=== PATIENT | male | born 1960 | race Caucasian/White ===

== ENCOUNTER 2023-08-05 21:28 | Inpatient (IN) ==
[2023-08-05 22:04] LABS: Basophils # (auto) 0.04 K/uL (0.00-0.20); Basophils % (auto) 0.7 %; Eosinophils # (auto) 0.19 K/uL (0.00-0.50); Eosinophils % (auto) 3.2 %; Hematocrit (blood only) 37.3 % (42.0-52.0); Hemoglobin 12.3 g/dl (14.0-18.0); Immature Granulocytes # (auto) 0.01 K/uL (0.01-0.20); Immature Granulocytes % (auto) 0.2 %; Lymphocytes % (auto) 18.8 %; Mean Corpuscular Hemoglobin 26.8 pg (25.0-34.0); Mean Corpuscular Volume 81.3 fL (80.0-100.0); Monocytes # (auto) 0.59 K/uL (0.11-0.59); Monocytes % (auto) 10.1 %; Neutrophils # (auto) 3.92 K/uL (1.40-6.50); Platelet Count 241 K/uL (130-400); RDW Coefficient of Variation 14.2 % (11.5-14.5); RDW Standard Deviation 41.5 fL (36.4-46.3); Red Blood Count 4.59 M/uL (4.70-6.10); White Blood Count 5.85 K/ul (4.8-10.8)
[2023-08-05 22:18] LABS: Alanine Aminotransferase 33 U/L (7-52); Albumin Globulin Ratio 0.9 (0.9-2); Albumin Level 3.6 gm/dl (3.4-5.0); Alkaline Phosphatase 121 U/L (34-104); Anion Gap 6 (3-11); Aspartate Aminotransferase 21 U/L (13-39); BUN Creatinine Ratio 20.5 (10-20); Bilirubin,Total 0.5 mg/dl (0.2-1.0); Blood Urea Nitrogen 23 mg/dl (6-23); Calcium 9.3 mg/dl (8.6-10.3); Carbon Dioxide 28 mmol/L (21-32); Chloride 102 mmol/L (98-107); Est GFR (African American) 81.7 ml/min; Est GFR (Non-African American) 70.5 ml/min; Globulin 4.1 gm/dl (2.5-4.0); Glucose 251 mg/dl (70-99(Fasting)); Potassium 4.5 mmol/L (3.5-5.1); Sodium 136 mmol/L (136-145); Total Protein 7.7 gm/dl (6.0-8.3)
--- NOTE | 2023-08-05 23:38 | Emergency Department Note ---
Impression & Plan Cellulitis of left foot, Diabetic foot ulcer associated with type 2 diabetes mellitus, Homelessness ED Provider Note CHIEF COMPLAINT: Ankle pain HISTORY OF PRESENTING ILLNESS: This 63-year-old male patient presents to the emergency department via ambulance for evaluation of a wound to the left great toe and swelling to the left ankle. He was admitted 1 month ago for the same symptoms. The patient states that he never picked up the medication after discharge last time because he had no way to get to the pharmacy. He is still homeless as they were unable to find housing for the patient after the patient's last admission. The patient has a history of diabetes. He denies any fevers. Has had some mild discharge from the foot diffusely as well as foul odor. Has been having some increased pain over the left foot today and trouble walking. REVIEW OF SYSTEMS: See HPI for pertinent positives and pertinent negatives. ALLERGIES: NKDA MEDICATIONS: See below PAST MEDICAL HISTORY: See below PHYSICAL EXAM: VITALS: Vitals are noted on the nurse's note and reviewed by myself. GENERAL: Non toxic, no acute distress, non-diaphoretic. SKIN: The L>R feet are macerated and erythematous with a combination of ulcerati ve, yeast, fungal, and bacterial changes. Symptoms are worse over the left great toe. No obvious evidence for abscess. The patient's bilateral lower extremities show signs of chronic diabetic skin changes as well as dry and sloughing skin. Capillary refill <2 sec. EYES: PERRLA. EOMI. Conjunctivae without injection, sclerae without icterus. NOSE: Patent without discharge. MOUTH: Mucous membranes moist. Uvula midline. Airway patent. NECK: Supple without nuchal rigidity. HEART: Regular rate and rhythm without murmurs gallops or rubs. LUNGS: Clear to auscultation bilaterally without wheezes, rales or rhonchi. No retractions or accessory muscle use. ABDOMEN: Positive bowel sounds x 4. Normal tympanic percussion. Soft, nontender. No masses or organomegaly. Espinosa sign negative. No guarding or rebound tenderness. No focal RLQ or LLQ tenderness. MUSCULOSKELETAL: The patient has no significant bony tenderness to palpation of the bilateral feet. He has decreased sensation to the bilateral feet due to diabetic neuropathy. Full range of motion of the toes of the bilateral feet as well as the bilateral ankles without evidence for septic arthritis. Dorsalis pedis and posterior tibial pulse 2+.. NEURO: Patient was alert and oriented. DIFFERENTIAL DIAGNOSIS: Differential diagnosis includes cellulitis, abscess, sepsis, bacteremia, yeast infection, fungal infection, ulcerative changes, peripheral artery disease, vascular occlusion, osteomyelitis, septic arthritis, or others. ED COURSE AND MEDICAL DECISION MAKING: MEDICATIONS GIVEN: Zosyn four-point grams IV and vancomycin 1750 mg IV. INTERPRETATION OF LABS: I interpreted the labs with full lab results as below in the lab section of this note. White blood cell count normal at 5.85. Hemoglobin low at 12.3. Platelet count is normal. Glucose 251 and alk phos 121, but CMP otherwise normal. Lactate normal. Blood cultures are still pending. INTERPRETATION OF IMAGING: X-rays of the bilateral feet were interpreted by myself as negative for radiographic evidence of osteomyelitis or acute bony abnormalities. However, there are multiple chronic changes present. Radiology report is still pending. EXTERNAL RECORDS REVIEWED: I reviewed the patient's past admission where he was discharged on 07/24/2023 for similar symptoms. CONSULTATIONS: On-call hospitalist MDM SUMMARY: I examined the patient. An IV lock was placed and labs were drawn. The patient was discharged on 07/24/2023 after IV antibiotics to treat a cellulitis of the feet. However, the patient was unable to strip picker the prescriptions because he was unable to find a ride. The patient is homeless and multiple attempts during last admission failed to find the patient a home or place to stay. Per patient, his feet have gotten worse since discharge. No evidence for abscess, obvious osteomyelitis, or sepsis based on the above work-up. The patient was given Zosyn and vancomycin. I spoke with the on-call hospitalist who agreed to admit the patient for further management. Please refer to their dictation for further details. The patient's care was transferred in stable condition. DIAGNOSIS: Cellulitis of the left foot Diabetic foot ulcer Homelessness Past Med/Surg History Medical History Anemia Depression Diabetes mellitus Diabetic foot ulcer associated with type 2 diabetes mellitus Homelessness Surgical History History of shoulder surgery Social History Smoking Status: Never smoker Hx Alcohol Use: No Hx Substance Use: No Preferred Language: Danish Communication Ability: Effective Production Troubleshooter Required: No Beliefs That Will Affect Care: None Current Living Situation: Homeless Current Living Situation Comment: homeless, sleeping on [address] Feels Safe at Home: Yes Assistive Devices: None Allergies Allergies Allergy/AdvReac Type Severity Reaction Status Date / Time No Known Allergies Allergy Verified 08/05/23 23:55 Home Meds Home Medications Medication Instructions Recorded Confirmed metformin 750 mg tablet,extended 750 mg PO QAM 08/05/23 08/05/23 release 24 hr polyethylene glycol 3350 17 gram 17 g PO DAILY PRN Constipation 08/05/23 08/05/23 oral powder packet (Miralax) sennosides 8.6 mg tablet (Senokot) 17.2 mg PO BID PRN Constipation 08/05/23 08/05/23 Previous Rx's Medication Instructions Recorded blood sugar diagnostic (VionicTouch #100 ea 07/15/23 Verio test strips) blood-glucose meter #1 ea 07/15/23 escitalopram oxalate 10 mg tablet 10 mg PO DAILY #30 tabs 07/15/23 lancets 30 gauge (Vionictouch Delica #100 ea 07/15/23 Safety Lancet) amoxicillin 875 mg-potassium 1 tab PO BIDM #2 tabs 07/24/23 clavulanate 125 mg tablet doxycycline hyclate 100 mg capsule 100 mg PO BID #2 caps 07/24/23 Results & Data (ED) Vital Signs Vital Signs - 24 hr 08/05/23 21:31 08/05/23 23:53 08/06/23 02:41 Temperature 36.9 C Temperature Source Temporal Artery Scan Pulse Rate 95 H Pulse Rate [Finger] 90 88 Respiratory Rate 16 18 16 Respiratory Effort / Characteristics Non-Labored Spontaneous Non-Labored Spontaneous Respiratory Depth Normal Normal Normal Respiratory Pattern Regular Blood Pressure 140/80 Blood Pressure [Left Arm] 128/68 125/74 Blood Pressure Mean 100 Blood Pressure Mean [Left Arm] 88 91 Blood Pressure Position Sitting Pulse Oximetry 97 96 94 Oxygen Delivery Method Room Air Room Air Room Air Sepsis Recent Fever Within 48 Hours No Sepsis New/Unexplained Change in Mental Status N/A Sepsis Action Taken by Nursing No Action Required Laboratory Data 08/05/23 21:40 08/05/23 21:40 Lab Results 08/05/23 08/05/23 08/06/23 Range/Units 21:40 21:40 00:50 WBC 5.85 (4.8-10.8) K/ul RBC 4.59 L (4.70-6.10) M/uL Hgb 12.3 L (14.0-18.0) g/dl Hct 37.3 L (42.0-52.0) % MCV 81.3 (80.0-100.0) fL MCH 26.8 (25.0-34.0) pg MCHC 33.0 (32.0-36.0) g/dL RDW Std Deviation 41.5 (36.4-46.3) fL RDW Coeff of Mejia 14.2 (11.5-14.5) % Plt Count 241 (130-400) K/uL MPV 9.0 L (9.4-12.4) fL Immature Gran % (Auto) 0.2 % Neut % (Auto) 67.0 % Lymph % (Auto) 18.8 % [place] % (Auto) 10.1 % Eos % (Auto) 3.2 % Baso % (Auto) 0.7 % Neut # (Auto) 3.92 (1.40-6.50) K/uL Lymph # (Auto) 1.10 L (1.20-3.40) K/uL [place] # (Auto) 0.59 (0.11-0.59) K/uL Eos # (Auto) 0.19 (0.00-0.50) K/uL Baso # (Auto) 0.04 (0.00-0.20) K/uL Immature Gran # (Auto) 0.01 (0.01-0.20) K/uL Sodium 136 (136-145) mmol/L Potassium 4.5 (3.5-5.1) mmol/L Chloride 102 (98-107) mmol/L Carbon Dioxide 28 (21-32) mmol/L Anion Gap 6 (3-11) BUN 23 (6-23) mg/dl Creatinine 1.12 (0.6-1.4) mg/dl Est Cr Clr Drug Dosing Not Reportable Est GFR ( Amer) 81.7 ml/min Est GFR (Non-Af Amer) 70.5 ml/min BUN/Creatinine Ratio 20.5 H (10-20) Glucose 251 H (70-99(Fasting)) mg/dl Lactate 1.0 (0.4-2.0) mmol/L Calcium 9.3 (8.6-10.3) mg/dl Total Bilirubin 0.5 (0.2-1.0) mg/dl AST 21 (13-39) U/L ALT 33 (7-52) U/L Alkaline Phosphatase 121 H (34-104) U/L Total Protein 7.7 (6.0-8.3) gm/dl Albumin 3.6 (3.4-5.0) gm/dl Globulin 4.1 H (2.5-4.0) gm/dl Albumin/Globulin Ratio 0.9 (0.9-2) Administered Medications Enoxaparin Sodium (Enoxaparin Inj 40 Mg/0.4 Ml Syr) 40 mg SQ Q24H FARIDA Stop: 09/05/23 05:59 Last Admin: 08/06/23 06:07 Dose: 40 mg Documented By: JUNE Discontinued Medications Piperacillin Sod/Tazobactam Sod (Zosyn) 4.5 gm in 100 mls @ 200 mls/hr IV NOW ONE Stop: 08/06/23 01:53 Last Infusion: 08/06/23 02:55 Dose: 0 mls/hr Documented By: Admin: 08/06/23 01:47 Dose: 200 mls/hr Documented By: DEVANTE Vancomycin HCl 1,750 mg/ (Sodium Chloride) 535 mls @ 200 mls/hr IV NOW ONE Stop: 08/06/23 04:09 Last Admin: 08/06/23 02:40 Dose: 200 mls/hr Documented By: KRISTINE Imaging Data Radiologist's Impression: Foot X-Ray 08/06/23 00:06 XR foot LT min 3V routine, XR foot RT min 3V routine CLINICAL HISTORY: eval osteomyelitis TECHNIQUE: 3 views of the bilateral feet were obtained. Comparison: None available at the time of this dictation. FINDINGS: No evidence of bony erosion is seen. Atrophy of the fifth digit of the right foot is noted. Soft tissue swelling is seen about the foot. IMPRESSION: 1. No radiographic evidence of osteomyelitis. If clinical concern remains, MRI is a more sensitive modality. 2. Atrophy of the right fifth digit is noted with termination at a diminutive proximal phalanx, this appears chronic. ACT 112: Negative or not required by law. Electronically signed by: Hector Wills M.D. 08/06/2023 7:33 AM Foot X-Ray 08/06/23 00:06 XR foot LT min 3V routine, XR foot RT min 3V routine CLINICAL HISTORY: eval osteomyelitis TECHNIQUE: 3 views of the bilateral feet were obtained. Comparison: None available at the time of this dictation. FINDINGS: No evidence of bony erosion is seen. Atrophy of the fifth digit of the right foot is noted. Soft tissue swelling is seen about the foot. IMPRESSION: 1. No radiographic evidence of osteomyelitis. If clinical concern remains, MRI is a more sensitive modality. 2. Atrophy of the right fifth digit is noted with termination at a diminutive proximal phalanx, this appears chronic. ACT 112: Negative or not required by law. Electronically signed by: Hector Wills M.D. 08/06/2023 7:33 AM Discharge Plan Visit Data Chief Complaint: Ankle Pain Stated Complaint: ANKLE PAIN ED Provider: Parris Torres ED Midlevel Provider: Julia Spence Discharge Problem: Cellulitis of left foot, Diabetic foot ulcer associated with type 2 diabetes mellitus, Homelessness Patient Disposition: Admitted As Inpatient Condition: Good Discharge Instructions Interventions: ED Discharge Assessment Last Done: 08/06/23 04:43
[2023-08-06] MEDS ORDERED: PIPERACILLIN/TAZOBACTAM 4.5 GM/100 ML BAG IV ONE (01:24)
[2023-08-06] MEDS ORDERED: VANCOMYCIN HCL 1,750 MG in SODIUM CHLORIDE 0.9% 500 ML IV ONE (01:29)
[2023-08-06] MEDS ORDERED: VANCOMYCIN CONSULT ACTIVE PRN (01:29)
--- NOTE | 2023-08-06 03:05 | History & Physical Report ---
Date of Service August 06, 2023 Assessment & Plan (1) Foot pain, left: Plan: 63 yo male with PMHx depression and uncontrolled DM2 presents with foot pain. He is homeless. Has not taken any medications in the past month. #Cellulitis -presented with few days of pain on bottom L big toe, unable to ambulate due to this. Possible cellulitis but without ulceration. Less likely osteomyelitis. No leukocytosis. Vitals wnl, afebrile. Seen here last month for similar complaint. Was discharged on oral abx however patient unable to obtain them due to being homeless. -XR feet: per my read unremarkable without bony erosion -given vancomycin and zosyn in the ED. Will continue these for now, defer to day team. -blood cx pending -wound care consulted -ultimately needs diabetic shoes as he has severe neuropathy of both feet -will need podiatry f/u post-discharge #DM2,uncontrolled -previously on metformin but none for the last month -A1c 10 from last month -started on SSI #Homeless -case management consulted DVT ppx: lovenox FEN/GI: DM2 Code Status: full Dispo: med surg (2) Diabetic foot ulcer associated with type 2 diabetes mellitus: (3) Homelessness: (4) Constipation: History of Present Illness Chief Complaint: foot pain Primary Care Provider: NO PCP 63 yo male with PMHx depression and uncontrolled DM2 presents with foot pain. He is homeless. A few days ago patient started experiencing pain beneath his left big toe as well as medial ankle which has been progressively getting worse to the point where he can no longer ambulate on it. He denies headache, fever, chest pain, shortness of breath, abdominal pain, nausea, vomiting, diarrhea, constipation, fatigue, new extremity weakness/numbness/tingling. He was seen here 1 month ago for similar symptoms and was discharged on antibiotics which she was to pickle pumper at the pharmacy however he states he never did due to inaccessibility and financial reasons. He also states he has not been taking any other medication over the past month due to the same reason. Allergies Allergy/AdvReac Type Severity Reaction Status Date / Time No Known Allergies Allergy Verified 08/05/23 23:55 Home Medications Medication Instructions Recorded Confirmed Type blood sugar diagnostic (OneTouch #100 ea 07/15/23 Rx Verio test strips) blood-glucose meter #1 ea 07/15/23 Rx escitalopram oxalate 10 mg tablet 10 mg PO DAILY #30 tabs 07/15/23 08/05/23 Rx lancets 30 gauge (Onetouch Delica #100 ea 07/15/23 Rx Safety Lancet) amoxicillin 875 mg-potassium 1 tab PO BIDM #2 tabs 07/24/23 08/05/23 Rx clavulanate 125 mg tablet doxycycline hyclate 100 mg capsule 100 mg PO BID #2 caps 07/24/23 08/05/23 Rx metformin 750 mg tablet,extended 750 mg PO QAM 08/05/23 08/05/23 History release 24 hr polyethylene glycol 3350 17 gram 17 g PO DAILY PRN Constipation 08/05/23 08/05/23 History oral powder packet (Miralax) sennosides 8.6 mg tablet (Senokot) 17.2 mg PO BID PRN Constipation 08/05/23 08/05/23 History Past Med/Surg History Medical History Anemia Depression Diabetes mellitus Diabetic foot ulcer associated with type 2 diabetes mellitus Homelessness Surgical History History of shoulder surgery Social History Smoking Status: Never smoker Hx Alcohol Use: No Hx Substance Use: No Preferred Language: [place] Zealander Communication Ability: Effective Orchid Superintendent Required: No Beliefs That Will Affect Care: None Current Living Situation: Homeless Current Living Situation Comment: homeless, sleeping on [address] Feels Safe at Home: Yes Assistive Devices: None Review of Systems Review of Systems: All systems reviewed & are unremarkable except as noted in HPI & below Physical Exam Physical Exam: Constitutional: disheveled appearing, in no acute distress, pleasant and normal affect, intact memory. AOx3. Vitals as above. HEENT: No scleral injection or discharge.Moist mucous membranes. Neck: Supple without lymphadenopathy or thyromegaly. Trachea midline. Lungs: CTAB. No wheezes/rales/rhonchi. Cardiac: RRR.No lower extremity edema. 2+ distal peripheral pulses. Abdomen: Soft, nontender, and nondistended.No guarding. No hepatosplenomegaly. MSK: No cyanosis or clubbing. Extremities motor strength 5/5. Skin: chronic diabetic skin changes bilateral lower extremities. L big toe plantar aspect with sloughed skin which is non erythematous and without ulcerati on. Neurologic: no focal deficits. Little to no sensation of bilateral lower extremities Results & Data Results & Data Vital Signs (Past 12 Hours) Vital Signs Temp Pulse Pulse Resp BP BP Pulse Ox 08/06/23 02:41 88 16 125/74 94 08/05/23 23:53 90 18 128/68 96 08/05/23 21:31 36.9 C 95 H 16 140/80 97 O2 Del Method 08/06/23 02:41 Room Air 08/05/23 23:53 Room Air 08/05/23 21:31 Room Air Laboratory Results Laboratory Results WBC 5.85 K/ul (4.8-10.8) 08/05/23 21:40 RBC 4.59 M/uL (4.70-6.10) L 08/05/23 21:40 Hgb 12.3 g/dl (14.0-18.0) L 08/05/23 21:40 Hct 37.3 % (42.0-52.0) L 08/05/23 21:40 MCV 81.3 fL (80.0-100.0) 08/05/23 21:40 MCH 26.8 pg (25.0-34.0) 08/05/23 21:40 MCHC 33.0 g/dL (32.0-36.0) 08/05/23 21:40 RDW Std Deviation 41.5 fL (36.4-46.3) 08/05/23 21:40 RDW Coeff of Mejia 14.2 % (11.5-14.5) 08/05/23 21:40 Plt Count 241 K/uL (130-400) 08/05/23 21:40 MPV 9.0 fL (9.4-12.4) L 08/05/23 21:40 Immature Gran % (Auto) 0.2 % 08/05/23 21:40 Neut % (Auto) 67.0 % 08/05/23 21:40 Lymph % (Auto) 18.8 % 08/05/23 21:40 [place] % (Auto) 10.1 % 08/05/23 21:40 Eos % (Auto) 3.2 % 08/05/23 21:40 Baso % (Auto) 0.7 % 08/05/23 21:40 Neut # (Auto) 3.92 K/uL (1.40-6.50) 08/05/23 21:40 Lymph # (Auto) 1.10 K/uL (1.20-3.40) L 08/05/23 21:40 [place] # (Auto) 0.59 K/uL (0.11-0.59) 08/05/23 21:40 Eos # (Auto) 0.19 K/uL (0.00-0.50) 08/05/23 21:40 Baso # (Auto) 0.04 K/uL (0.00-0.20) 08/05/23 21:40 Immature Gran # (Auto) 0.01 K/uL (0.01-0.20) 08/05/23 21:40 Sodium 136 mmol/L (136-145) 08/05/23 21:40 Potassium 4.5 mmol/L (3.5-5.1) 08/05/23 21:40 Chloride 102 mmol/L (98-107) 08/05/23 21:40 Carbon Dioxide 28 mmol/L (21-32) 08/05/23 21:40 Anion Gap 6 (3-11) 08/05/23 21:40 BUN 23 mg/dl (6-23) 08/05/23 21:40 Creatinine 1.12 mg/dl (0.6-1.4) 08/05/23 21:40 Est Cr Clr Drug Dosing Not Reportable 08/05/23 21:40 Est GFR ( Amer) 81.7 ml/min 08/05/23 21:40 Est GFR (Non-Af Amer) 70.5 ml/min 08/05/23 21:40 BUN/Creatinine Ratio 20.5 (10-20) H 08/05/23 21:40 Glucose 251 mg/dl (70-99(Fasting)) H 08/05/23 21:40 Lactate 1.0 mmol/L (0.4-2.0) 08/06/23 00:50 Calcium 9.3 mg/dl (8.6-10.3) 08/05/23 21:40 Total Bilirubin 0.5 mg/dl (0.2-1.0) 08/05/23 21:40 AST 21 U/L (13-39) 08/05/23 21:40 ALT 33 U/L (7-52) 08/05/23 21:40 Alkaline Phosphatase 121 U/L (34-104) H 08/05/23 21:40 Total Protein 7.7 gm/dl (6.0-8.3) 08/05/23 21:40 Albumin 3.6 gm/dl (3.4-5.0) 08/05/23 21:40 Globulin 4.1 gm/dl (2.5-4.0) H 08/05/23 21:40 Albumin/Globulin Ratio 0.9 (0.9-2) 08/05/23 21:40 Supervising Physician Co-Signing Physician Notes Attending addendum: I have physically seen this patient, have supervised the medical residents activities, and agree with the H&P unless as otherwise noted. Assessment and Plan: Cellulitis left foot/great toe- Patient was unable to take oral antibiotics that were prescribed on discharge, due to being homeless and heparin Pharmacy plan Continue vancomycin IV and Zosyn IV begun in ED Follow blood cultures Consult wound care Diabetic shoes would help prevent injury associated with severe neuropathy of his feet Diabetes mellitus, Uncontrolled- Hold on metformin Placed on Accu-Cheks with NovoLog SSI Homeless situation- Consult case management Resident Activity Tracking Resident Involvement: Resident Care Provided Care Provided: Adult Hospital Medicine
[2023-08-06] MEDS ORDERED: GLUCOSE 10 TAB/TUBE PO PRN (04:41)
[2023-08-06] MEDS ORDERED: GLUCOSE 40% GEL 15 GM TUBE PO PRN (04:41)
[2023-08-06] MEDS ORDERED: POLYETHYLENE (MIRALAX) 17 GM PACK PO PRN ×2 (04:41→19:06)
[2023-08-06] MEDS ORDERED: CARBOHYDRATES FOR HYPOGLYCEMIA PO PRN (04:41)
[2023-08-06] MEDS ORDERED: DEXTROSE 50% 50 ML SYRINGE IV PRN (04:41)
[2023-08-06] MEDS ORDERED: ACETAMINOPHEN 325 MG TAB PO PRN (04:41)
[2023-08-06] MEDS ORDERED: GLUCAGON FOR INJ 1 MG VIAL SQ PRN (04:41)
[2023-08-06] MEDS ORDERED: PIPERACILLIN/TAZOBACTAM 4.5 GM/100 ML BAG IV STA (04:49)
[2023-08-06] MEDS: ENOXAPARIN INJ 40 MG/0.4 ML SYR SQ SCH (06:07)
--- NOTE | 2023-08-06 06:23 | Billing Data ---
Date of Service August 06, 2023 Coding Level of Care Code 80289 INT INP/OBS CARE
--- NOTE | 2023-08-06 07:34 | XRay Report ---
XR foot LT min 3V routine, XR foot RT min 3V routine CLINICAL HISTORY: eval osteomyelitis TECHNIQUE: 3 views of the bilateral feet were obtained. Comparison: None available at the time of this dictation. FINDINGS: No evidence of bony erosion is seen. Atrophy of the fifth digit of the right foot is noted. Soft tiss ue swelling is seen about the foot. IMPRESSION: 1. No radiographic evidence of osteomyelitis. If clinical concern remains, MRI is a more sensitive m odality. 2. Atrophy of the right fifth digit is noted with termination at a diminutive proximal phalanx, this appears chronic. ACT 112: Negative or not required by law. Electronically signed by: Hector Wills M.D. 08/06/2023 7:33 AM
[2023-08-06] MEDS ORDERED: PIPERACILLIN/TAZOBACTAM 4.5 GM/100ML D5W IV ONE (08:44)
[2023-08-06] MEDS: PIPERACILLIN/TAZOBACTAM 4.5 GM in DEXTROSE 5% MINI-B 100 ML IV SCH ×2 (08:52→15:53)
[2023-08-06] MEDS: INSULIN ASPART PER UNIT CHARGE SC SCH ×4 (08:59→20:58)
[2023-08-06] MEDS ORDERED: VANCOMYCIN HCL 1,000 MG in SODIUM CHLORIDE 0.9% 250 ML IV SCH (10:00)
--- NOTE | 2023-08-06 11:14 | Pharmacy Report ---
Pharmacy PK ABX Note - Date of Service August 06, 2023 - Assessment and Plan Assessment 63 year old M receiving Vancomycin and Zosyn for treatment of diabetic foot infection. * Day #1 of antimicrobial therapy. * PMHx significant for T2DM that is uncontrolled per most recent A1c and homelessness with medication non-compliance. * Per H&P: "presented with few days of pain on bottom L big toe, unable to ambulate due to this. Possible cellulitis but without ulceration. Less likely osteomyelitis." XR did not show bony erosion per radiology read. * Afebrile and without leukocytosis. SCr 1.12 mg/dL, baseline unknown. * Blood cultures pending. Plan Vancomycin * Loading dose: 1750 mg IV x 1 * Maintenance dose: 1000 mg IV every 12 hours * Regimen is predicted to achieve target AUC/THIERNO of 400-600 mg/L.hr * Random level ordered for: 08/08/23 Zosyn * 4.5 g IV every 8 hours Pharmacy will continue to follow and will adjust dose/frequency as necessary. Thank you. Pharmacy has transitioned to AUC monitoring for vancomycin. AUC/THIERNO is the preferred PK/PD target and is associated with decreased risk of nephrotoxicity compared to traditional trough targets.
--- NOTE | 2023-08-06 19:16 | Communication Note ---
Date of Service: August 06, 2023 63 yo male with PMHx depression and uncontrolled DM2 presents with foot pain. He is homeless.Has not taken any medications in the past month. I saw him after brought from ED this afternoon, examined his feet. L great toe with warty texture, maceration and erythema without sasha ulceration or wound. Bilateral L>R ankle erythema and induration. Ransom wrinkly edema and severe venous stasis dermatitis bilaterally. #Cellulitis of L toe/forefoot and possibly L ankle (increased erythema and tenderness compared to right) #Diabetic neuropathy #Severe venous stasis disease bilaterally #Verruca planataris - time study engineer Dr. Marie consulted last admission and debrided both feet -presented with few days of pain on bottom L big toe, unable to ambulate due to this. Possible cellulitis but without ulceration. Less likely osteomyelitis. No leukocytosis. Vitals wnl, afebrile. Seen here last month for similar complaint. Was discharged on oral abx however patient unable to obtain them due to being homeless. -XR feet: per my read unremarkable without bony erosion -given vancomycin and zosyn in the ED. Stop vancomycin -blood cx pending -elevate -wound care consulted -ultimately needs diabetic shoes as he has severe neuropathy of both feet -will need podiatry f/u post-discharge #DM2,uncontrolled -previously on metformin but none for the last month. Likely resume tomorrow -A1c 10 from last month -started on SSI #Severe chronic constipation - resumed bowel regimen #Iron deficiency - EGD fairly unremarkable last admission 07/22 mild gastritis a nd small hiatal hernia. Colonoscopy attempted but too much stool to visualize, repeat cancelled by GI and planned to do as outpatient -given venofer x 2 doses last admission #Depression - resumed escitalopram #Homeless -case management consulted Last discharge summary 07/24/23: "social work has investigated about 10 + options for housing post-d/c none of these have worked out we contacted his sister who lives in [place] -- she is unwilling to take him in"
[2023-08-07] MEDS: PIPERACILLIN/TAZOBACTAM 4.5 GM in DEXTROSE 5% MINI-B 100 ML IV SCH ×2 (00:35→09:00)
[2023-08-07] MEDS: ENOXAPARIN INJ 40 MG/0.4 ML SYR SQ SCH (05:05)
[2023-08-07] MEDS: MULTIVITAMIN TAB PO SCH (08:12)
[2023-08-07] MEDS: ESCITALOPRAM OXALATE 10 MG TAB PO SCH (08:12)
[2023-08-07] MEDS: INSULIN ASPART PER UNIT CHARGE SC SCH ×4 (08:15→22:12)
[2023-08-07] MEDS: AMOXICILLIN/CLAVULANATE 875 MG TAB PO SCH (17:16)
--- NOTE | 2023-08-07 18:21 | Hospitalist Progress Note ---
Date of Service August 07, 2023 Assessment & Plan (1) Cellulitis of left foot: Plan: 63 yo male with PMHx depression and uncontrolled DM2 presents with foot pain. He is homeless.Has not taken any medications in the past month. L great toe with warty texture, maceration and erythema without sasha ulceration or wound. Bilateral L>R ankle erythema and induration. [place] wrinkly edema and severe venous stasis dermatitis bilaterally. 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 Possible cellulitis but without ulceration. unlikely osteomyelitis. no deep wound is present and x-rays were negative. No leukocytosis. Vitals wnl, afebrile. Seen here last month for similar complaint. Was discharged on oral abx however patient unable to obtain them due to being homeless. -given vancomycin and zosyn in the ED. Improved as of 08/07 change antibiotics to oral Augmentin -blood cx pending - ngtd -elevate -wound care consulted -ultimately needs diabetic shoes as he has severe neuropathy of both feet -will need podiatry f/u post-discharge (2) Plantar verrucous carcinoma of left foot: Plan: podiatry follow up (3) Homelessness: Plan: significant barrier to medical care and follow-up now has been enrolled in insurance discussed with case management Last discharge summary 07/24/23: "social work has investigated about 10 + options for housing post-d/c none of these have worked out we contacted his sister who lives in [place] -- she is unwilling to take him in" (4) Diabetes mellitus: Plan: uncontrolled, A1c 10 last month, BG above goal 08/07 -resume po metformin, continue PRN short acting insulin Plan #Severe chronic constipation - resumed bowel regimen #Iron deficiency - EGD fairly unremarkable last admission 07/22 mild gastritis and small hiatal hernia. Colonoscopy attempted but too much stool to visualize, repeat cancelled by GI and planned to do as outpatient -given venofer x 2 doses last admission #Depression - resumed escitalopram DVT ppx - enoxaparin Admission and Anticipated Discharge Date Admission Date: August 06, 2023 Subjective both legs redness and swelling improved, hasn't seen his toe was still dressed. has numbness and tingling of feet but no pain r/t neuropathy Physical Exam Physical Exam: PHYSICAL EXAMINATION Last 24h vital signs reviewed, see documentation in flowsheet General: comfortable appearing, no distress HEENT: Normocephalic, atraumatic, pupils round and equal, sclerae anicteric, no conjunctival injection, moist mucus membranes Lungs: Normal respiratory effort. Heart: deferred Abdomen: Soft, nondistended. Extremities: lower extremities notable for woody edema up to proximal dumont. Severe stasis dermatitis and hyperkeratosis bilateral feet and shins. Bilateral erythema of mid shins is improved, the left is worse than the right. Left first toe erythema improved. Warty appearance persists. there is some superficial maceration but no deep wounds are present Neuro: Alert and oriented x 4, face symmetric, moves 4 extremities well Psych: Normal affect and behavior Results & Data Results & Data Vital Signs (Past 12 Hours) Vital Signs Temp Pulse Resp BP Pulse Ox O2 Del Method 08/07/23 15:14 36.5 C 69 20 128/74 95 Room Air 08/07/23 07:58 Room Air 08/07/23 07:07 37.2 C 76 16 133/81 96 Room Air PG Care Time/CCT Total # of Minutes Spent Total Time Spent with Patient: Total time spent is greater than 50% in coordination of care (as documented) at patient's floor/unit and/or counseling patient: Coding Level of Care Code 36906 SUB INP/OBS CARE MIN Diagnoses Cellulitis of left foot L03.116 Plantar verrucous carcinoma of left foot C76.52 Homelessness Z59.00 Diabetes mellitus E11.621; L97.509 Diabetes mellitus complication detail: with foot ulcer Diabetes mellitus complication status: with skin complications Diabetes mellitus half-way insulin use: unspecified long goods drier insulin use status Diabetes mellitus type: type 2 (4) Diabetes mellitus Diabetes mellitus complication detail: with foot ulcer Diabetes mellitus complication status: with skin complications Diabetes mellitus long goods drier insulin use: unspecified half-way insulin use status Diabetes mellitus type: type 2 Qualified Code(s): E11.621 - Type 2 diabetes mellitus with foot ulcer; L97.509 - Non-pressure chronic ulcer of other part of unspecified foot with unspecified severity
[2023-08-08] MEDS: ENOXAPARIN INJ 40 MG/0.4 ML SYR SQ SCH (05:19)
[2023-08-08] MEDS: AMOXICILLIN/CLAVULANATE 875 MG TAB PO SCH ×2 (07:40→17:37)
[2023-08-08] MEDS: INSULIN ASPART PER UNIT CHARGE SC SCH ×4 (08:49→20:30)
[2023-08-08] MEDS: ESCITALOPRAM OXALATE 10 MG TAB PO SCH (08:50)
[2023-08-08] MEDS: metFORMIN HCL 500 MG TAB PO SCH (08:50)
[2023-08-08] MEDS: MULTIVITAMIN TAB PO SCH (08:50)
--- NOTE | 2023-08-08 18:46 | Hospitalist Progress Note ---
Date of Service August 08, 2023 Assessment & Plan (1) Cellulitis of left foot: Plan: 63 yo male with PMHx depression and uncontrolled DM2 presents with foot pain. He is homeless.Has not taken any medications in the past month. L great toe with warty texture, maceration and erythema without sasha ulceration or wound. Bilateral L>R ankle erythema and induration. [place] wrinkly edema and severe venous stasis dermatitis bilaterally. 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 Possible cellulitis but without ulceration. unlikely osteomyelitis. no deep wound is present and x-rays were negative. No leukocytosis. Vitals wnl, afebrile. Seen here last month for similar complaint. Was discharged on oral abx however patient unable to obtain them due to being homeless. -given vancomycin and zosyn in the ED. Improved as of 08/07 changed antibiotics to oral Augmentin - complete 7d course -blood cx pending - ngtd -elevate -wound care consulted - rec'd lachydrin -ultimately needs diabetic shoes as he has severe neuropathy of both feet -will need podiatry f/u post-discharge (2) Plantar verrucous carcinoma of left foot: Plan: podiatry follow up (3) Homelessness: Plan: significant barrier to medical care and follow-up now has been enrolled in insurance discussed with case management possibly can move in with friend in [place] Last discharge summary 07/24/23: "social work has investigated about 10 + options for housing post-d/c none of these have worked out we contacted his sister who lives in [place] -- she is unwilling to take him in" (4) Diabetes mellitus: Plan: uncontrolled, A1c 10 last month, BG at goal 08/08 -resumed po metformin, continue PRN short acting insulin Plan #Severe chronic constipation - resumed bowel regimen #Iron deficiency - EGD fairly unremarkable last admission 07/22 mild gastritis and small hiatal hernia. Colonoscopy attempted but too much stool to visualize, repeat cancelled by GI and planned to do as outpatient -given venofer x 2 doses last admission #Depression - resumed escitalopram DVT ppx - enoxaparin Admission and Anticipated Discharge Date Admission Date: August 07, 2023 Subjective foot numbness continues and some mild drainage from L 1st toe. Wound nurse evaluated. States he may be able to move in with a friend in [place] Physical Exam Physical Exam: PHYSICAL EXAMINATION Last 24h vital signs reviewed, see documentation in flowsheet Exam unchanged 08/08 - LE shins erythema and induration improved otherwise same General: comfortable appearing, no distress HEENT: Normocephalic, atraumatic, pupils round and equal, sclerae anicteric, no conjunctival injection, moist mucus membranes Lungs: Normal respiratory effort. Heart: deferred Abdomen: Soft, nondistended. Extremities: lower extremities notable for woody edema up to proximal dum[place]. Severe stasis dermatitis and hyperkeratosis bilateral feet and shins. Bilateral erythema of mid shins is improved, the left is worse than the right. Left first toe erythema improved. Warty appearance persists. there is some superficial maceration but no deep wounds are present Neuro: Alert and oriented x 4, face symmetric, moves 4 extremities well Psych: Normal affect and behavior Results & Data Results & Data Vital Signs (Past 12 Hours) Vital Signs Temp Pulse Resp BP BP Pulse Ox O2 Del Method 08/08/23 14:32 36.9 C 73 18 123/70 95 Room Air 08/08/23 10:40 36.4 C L 74 20 116/68 92 Room Air 08/08/23 07:27 36.4 C L 72 16 124/69 93 Room Air PG Care Time/CCT Total # of Minutes Spent Total Time Spent with Patient: Total time spent is greater than 50% in coordination of care (as documented) at patient's floor/unit and/or counseling patient: Coding Level of Care Code 31023 SUB INP/OBS CARE 10/31MIN Diagnoses Cellulitis of left foot L03.116 Plantar verrucous carcinoma of left foot C76.52 Homelessness Z59.00 Diabetes mellitus E11.621; L97.509 Diabetes mellitus complication detail: with foot ulcer Diabetes mellitus complication status: with skin complications Diabetes mellitus terminal operations supervisor insulin use: unspecified long-term insulin use status Diabetes mellitus type: type 2 (4) Diabetes mellitus Diabetes mellitus complication detail: with foot ulcer Diabetes mellitus complication status: with skin complications Diabetes mellitus terminal operations supervisor insulin use: unspecified terminal operations supervisor insulin use status Diabetes mellitus type: type 2 Qualified Code(s): E11.621 - Type 2 diabetes mellitus with foot ulcer; L97.509 - Non-pressure chronic ulcer of other part of unspecified foot with unspecified severity
[2023-08-09] MEDS: ENOXAPARIN INJ 40 MG/0.4 ML SYR SQ SCH (05:55)
[2023-08-09] MEDS: ESCITALOPRAM OXALATE 10 MG TAB PO SCH (08:28)
[2023-08-09] MEDS: SENNA 8.6 MG TAB PO PRN (08:28)
[2023-08-09] MEDS: AMOXICILLIN/CLAVULANATE 875 MG TAB PO SCH ×2 (08:28→17:26)
[2023-08-09] MEDS: metFORMIN HCL 500 MG TAB PO SCH (08:28)
[2023-08-09] MEDS: AMMONIUM LACTATE 12% LOTION 225 GM BTL EXT SCH (08:29)
[2023-08-09] MEDS: MULTIVITAMIN TAB PO SCH (08:29)
[2023-08-09] MEDS: INSULIN ASPART PER UNIT CHARGE SC SCH ×4 (08:34→21:21)
--- NOTE | 2023-08-09 18:03 | Hospitalist Progress Note ---
Date of Service August 09, 2023 Assessment & Plan (1) Cellulitis of left foot: Plan: 63 yo male with PMHx depression and uncontrolled DM2 presents with foot pain. He is homeless.Has not taken any medications in the past month. L great toe with warty texture, maceration and erythema without sasha ulceration or wound. Bilateral L>R ankle erythema and induration. [place] wrinkly edema and severe venous stasis dermatitis bilaterally. 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 Possible cellulitis but without ulceration. unlikely osteomyelitis. no deep wound is present and x-rays were negative. No leukocytosis. Vitals wnl, afebrile. Seen here last month for similar complaint. Was discharged on oral abx however patient unable to obtain them due to being homeless. -given vancomycin and zosyn in the ED. Improved as of 08/07 changed antibiotics to oral Augmentin - complete 7d course -blood cx pending - ngtd -elevate -wound care consulted - rec'd lachydrin -ultimately needs diabetic shoes as he has severe neuropathy of both feet -will need podiatry f/u post-discharge (2) Plantar verrucous carcinoma of left foot: Plan: podiatry follow up (3) Homelessness: Plan: significant barrier to medical care and follow-up now has been enrolled in insurance discussed with case management 08/09 possibly can move in with friend in [place] Last discharge summary 07/24/23: "social work has investigated about 10 + options for housing post-d/c none of these have worked out we contacted his sister who lives in [place] -- she is unwilling to take him in" (4) Diabetes mellitus: Plan: uncontrolled, A1c 10 last month, BG at goal 08/08 -resumed po metformin, continue PRN short acting insulin Plan #Severe chronic constipation - resumed bowel regimen #Iron deficiency - EGD fairly unremarkable last admission 07/22 mild gastritis and small hiatal hernia. Colonoscopy attempted but too much stool to visualize, repeat cancelled by GI and planned to do as outpatient -given venofer x 2 doses last admission #Depression - resumed escitalopram DVT ppx - enoxaparin Admission and Anticipated Discharge Date Admission Date: August 07, 2023 Subjective redness of ankles improving, swelling resolved, working on staying with friend Physical Exam Physical Exam: PHYSICAL EXAMINATION Last 24h vital signs reviewed, see documentation in flowsheet Exam unchanged 08/09 - LE shins erythema and induration continues to be improved otherwise same General: comfortable appearing, no distress HEENT: Normocephalic, atraumatic, pupils round and equal, sclerae anicteric, no conjunctival injection, moist mucus membranes Lungs: Normal respiratory effort. Heart: deferred Abdomen: Soft, nondistended. Extremities: lower extremities notable for woody edema up to proximal dumont. Severe stasis dermatitis and hyperkeratosis bilateral feet and shins. Bilateral erythema of mid shins is improved, the left is worse than the right. Left first toe erythema improved. Warty appearance persists. there is some superficial maceration but no deep wounds are present Neuro: Alert and oriented x 4, face symmetric, moves 4 extremities well Psych: Normal affect and behavior Results & Data Results & Data Vital Signs (Past 12 Hours) Vital Signs Temp Pulse Resp BP BP Pulse Ox O2 Del Method 08/09/23 15:17 36.6 C 80 15 137/81 95 Room Air 08/09/23 07:44 36.6 C 72 16 117/72 94 Room Air PG Care Time/CCT Total # of Minutes Spent Total Time Spent with Patient: Total time spent is greater than 50% in coordination of care (as documented) at patient's floor/unit and/or counseling patient: Coding Level of Care Code 90872 SUB INP/OBS CARE 25MIN Diagnoses Cellulitis of left foot L03.116 Plantar verrucous carcinoma of left foot C76.52 Homelessness Z59.00 Diabetes mellitus E11.621; L97.509 Diabetes mellitus complication detail: with foot ulcer Diabetes mellitus complication status: with skin complications Diabetes mellitus rodent exterminator insulin use: unspecified rodent exterminator insulin use status Diabetes mellitus type: type 2 (4) Diabetes mellitus Diabetes mellitus complication detail: with foot ulcer Diabetes mellitus complication status: with skin complications Diabetes mellitus rodent exterminator insulin use: unspecified penitentiary insulin use status Diabetes mellitus type: type 2 Qualified Code(s): E11.621 - Type 2 diabetes mellitus with foot ulcer; L97.509 - Non-pressure chronic ulcer of other part of unspecified foot with unspecified severity
[2023-08-10] MEDS: ENOXAPARIN INJ 40 MG/0.4 ML SYR SQ SCH (06:27)
[2023-08-10] MEDS: AMOXICILLIN/CLAVULANATE 875 MG TAB PO SCH ×2 (09:38→17:30)
[2023-08-10] MEDS: AMMONIUM LACTATE 12% LOTION 225 GM BTL EXT SCH (09:38)
[2023-08-10] MEDS: ESCITALOPRAM OXALATE 10 MG TAB PO SCH (09:39)
[2023-08-10] MEDS: MULTIVITAMIN TAB PO SCH (09:39)
[2023-08-10] MEDS: INSULIN ASPART PER UNIT CHARGE SC SCH ×4 (09:41→20:46)
[2023-08-10] MEDS: metFORMIN HCL 500 MG TAB PO SCH (11:21)
--- NOTE | 2023-08-10 16:47 | Hospitalist Progress Note ---
Date of Service August 10, 2023 Assessment & Plan (1) Cellulitis of left foot: Plan: 63 yo male with PMHx depression and uncontrolled DM2 presents with foot pain. He is homeless.Has not taken any medications in the past month. L great toe with warty texture, maceration and erythema without sasha ulceration or wound. Bilateral L>R ankle erythema and induration. [place] wrinkly edema and severe venous stasis dermatitis bilaterally. 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 Possible cellulitis but without ulceration. unlikely osteomyelitis. no deep wound is present and x-rays were negative. No leukocytosis. Vitals wnl, afebrile. Seen here last month for similar complaint. Was discharged on oral abx however patient unable to obtain them due to being homeless. -given vancomycin and zosyn in the ED. Improved as of 08/07 changed antibiotics to oral Augmentin - complete 7d course -blood cx pending - ngtd -elevate -wound care consulted - rec'd lachydrin -ultimately needs diabetic shoes as he has severe neuropathy of both feet -will need podiatry f/u post-discharge (2) Plantar verrucous carcinoma of left foot: Plan: podiatry follow up (3) Homelessness: Plan: significant barrier to medical care and follow-up now has been enrolled in insurance discussed with case management 08/09 confirms can move in with friend in [place] - hoping for transportation assistance Saturday Needs diabetic meds filled He will look up which pharmacy in [place] - [facility] Last discharge summary 07/24/23: "social work has investigated about 10 + options for housing post-d/c none of these have worked out we contacted his sister who lives in [place] -- she is unwilling to take him in" (4) Diabetes mellitus: Plan: uncontrolled, A1c 10 last month, BG at goal 08/10 -resumed po metformin, continue PRN short acting insulin - infrequent doses Plan #Severe chronic constipation - resumed bowel regimen #Iron deficiency - EGD fairly unremarkable last admission 07/22 mild gastritis and small hiatal hernia. Colonoscopy attempted but too much stool to visualize, repeat cancelled by GI and planned to do as outpatient -given venofer x 2 doses last admission #Depression - resumed escitalopram DVT ppx - enoxaparin Admission and Anticipated Discharge Date Admission Date: August 07, 2023 Subjective no foot pain, foot numbness persists unchanged RN recently changed dressing, L great toe looks improved no drainage Physical Exam Physical Exam: PHYSICAL EXAMINATION Last 24h vital signs reviewed, see documentation in flowsheet General: comfortable appearing, no distress HEENT: Normocephalic, atraumatic, pupils round and equal, sclerae anicteric, no conjunctival injection, moist mucus membranes Lungs: Normal respiratory effort. Heart: deferred Abdomen: Soft, nondistended. Extremities: lower extremities notable for woody edema up to proximal dumont. Severe stasis dermatitis and hyperkeratosis bilateral feet and shins looks improved with lachydrin. Bilateral erythema of mid shins is improved, cellulitis resolving. Left first toe dresssed Neuro: Alert and oriented x 4, face symmetric, moves 4 extremities well Psych: Normal affect and behavior Results & Data Results & Data Vital Signs (Past 12 Hours) Vital Signs Temp Pulse Resp BP Pulse Ox O2 Del Method 08/10/23 15:36 36.7 C 80 16 135/66 96 Room Air 08/10/23 08:14 36.6 C 74 16 142/78 H 95 Room Air PG Care Time/CCT Total # of Minutes Spent Total Time Spent with Patient: Total time spent is greater than 50% in coordination of care (as documented) at patient's floor/unit and/or counseling patient: Coding Level of Care Code 66190 SUB INP/OBS CARE 10/31MIN Diagnoses Cellulitis of left foot L03.116 Plantar verrucous carcinoma of left foot C76.52 Homelessness Z59.00 Diabetes mellitus E11.621; L97.509 Diabetes mellitus complication detail: with foot ulcer Diabetes mellitus complication status: with skin complications Diabetes mellitus assisted insulin use: unspecified regional intermodal truck driver insulin use status Diabetes mellitus type: type 2 (4) Diabetes mellitus Diabetes mellitus complication detail: with foot ulcer Diabetes mellitus complication status: with skin complications Diabetes mellitus regional intermodal truck driver insulin use: unspecified regional intermodal truck driver insulin use status Diabetes mellitus type: type 2 Qualified Code(s): E11.621 - Type 2 diabetes mellitus with foot ulcer; L97.509 - Non-pressure chronic ulcer of other part of unspecified foot with unspecified severity
[2023-08-11] MEDS: ENOXAPARIN INJ 40 MG/0.4 ML SYR SQ SCH (05:25)
[2023-08-11] MEDS: AMOXICILLIN/CLAVULANATE 875 MG TAB PO SCH ×2 (07:27→17:26)
[2023-08-11] MEDS: ESCITALOPRAM OXALATE 10 MG TAB PO SCH (08:31)
[2023-08-11] MEDS: metFORMIN HCL 500 MG TAB PO SCH (08:32)
[2023-08-11] MEDS: INSULIN ASPART PER UNIT CHARGE SC SCH ×4 (08:32→19:52)
[2023-08-11] MEDS: MULTIVITAMIN TAB PO SCH (08:32)
[2023-08-11] MEDS: SENNA 8.6 MG TAB PO PRN (08:32)
[2023-08-11] MEDS: AMMONIUM LACTATE 12% LOTION 225 GM BTL EXT SCH (08:36)
--- NOTE | 2023-08-11 16:43 | Hospitalist Progress Note ---
Date of Service August 11, 2023 Assessment & Plan (1) Cellulitis of left foot: Plan: 63 yo male with PMHx depression and uncontrolled DM2 presents with foot pain. He is homeless.Has not taken any medications in the past month. L great toe with warty texture, maceration and erythema without sasha ulceration or wound. Bilateral L>R ankle erythema and induration. [place] wrinkly edema and severe venous stasis dermatitis bilaterally. #Cellulitis of L toe/forefoot and possibly L ankle (increased erythema and tenderness compared to right) #Diabetic neuropathy #Severe venous stasis disease bilaterally #Verrucous carcinoma of left foot - affirmative action specialist Dr. Marie consulted last admission and debrided both feet, recommended follow-up in clinic -presented with few days of pain on bottom L big toe, unable to ambulate due to this. Possible cellulitis but without ulceration. unlikely osteomyelitis. no deep wound is present and x-rays were negative. No leukocytosis. Vitals wnl, afebrile. Seen here last month for similar complaint. Was discharged on oral abx however patient unable to obtain them due to being homeless. -given vancomycin and zosyn in the ED. Improved as of 08/07 changed antibiotics to oral Augmentin - complete 7d course -blood cx pending - ngtd -elevate -wound care consulted - rec'd lachydrin -ultimately needs diabetic shoes as he has severe neuropathy of both feet -will need podiatry f/u post-discharge (2) Plantar verrucous carcinoma of left foot: Plan: podiatry follow up (3) Homelessness: Plan: significant barrier to medical care and follow-up now has been enrolled in insurance discussed with case management 08/09 confirms can move in with friend in [place] - hoping for transportation assistance Saturday Needs diabetic meds filled He will look up which pharmacy in [place] - [facility] Last discharge summary 07/24/23: "social work has investigated about 10 + options for housing post-d/c none of these have worked out we contacted his sister who lives in [place] -- she is unwilling to take him in" (4) Diabetes mellitus: Plan: uncontrolled, A1c 10 last month, BG at goal 08/10 -resumed po metformin, continue PRN short acting insulin - infrequent doses Plan #Severe chronic constipation - resumed bowel regimen #Iron deficiency - EGD fairly unremarkable last admission 07/22 mild gastritis and small hiatal hernia. Colonoscopy attempted but too much stool to visualize, repeat cancelled by GI and planned to do as outpatient -given venofer x 2 doses last admission #Depression - resumed escitalopram DVT ppx - enoxaparin Admission and Anticipated Discharge Date Admission Date: August 07, 2023 Subjective hoping for discharge tomorrow, wants transportation assistance L 1st toe no longer draining, has numbness but insensate / no pain of feet Physical Exam Physical Exam: PHYSICAL EXAMINATION Last 24h vital signs reviewed, see documentation in flowsheet General: comfortable appearing, no distress HEENT: Normocephalic, atraumatic, pupils round and equal, sclerae anicteric, no conjunctival injection, moist mucus membranes Lungs: Normal respiratory effort. Heart: deferred Abdomen: Soft, nondistended. Extremities: lower extremities notable for woody edema up to proximal dumont. Severe stasis dermatitis and hyperkeratosis bilateral feet and shins looks improved with lachydrin. Bilateral erythema of mid shins is improved, cellulitis resolved. Left first toe erythema and induration resolved, warty appearance unchanged, no drainage on dressing Neuro: Alert and oriented x 4, face symmetric, moves 4 extremities well Psych: Normal affect and behavior Results & Data Results & Data Vital Signs (Past 12 Hours) Vital Signs Temp Pulse Resp BP Pulse Ox O2 Del Method 08/11/23 15:53 36.6 C 66 16 124/73 95 Room Air 08/11/23 08:33 36.4 C L 68 16 109/67 95 Room Air PG Care Time/CCT Total # of Minutes Spent Total Time Spent with Patient: Total time spent is greater than 50% in coordination of care (as documented) at patient's floor/unit and/or counseling patient: Coding Level of Care Code 18134 SUB INP/OBS CARE 10/31MIN Diagnoses Cellulitis of left foot L03.116 Plantar verrucous carcinoma of left foot C76.52 Homelessness Z59.00 Diabetes mellitus E11.621; L97.509 Diabetes mellitus complication detail: with foot ulcer Diabetes mellitus complication status: with skin complications Diabetes mellitus fpc insulin use: unspecified buttermilk drier operator insulin use status Diabetes mellitus type: type 2 (4) Diabetes mellitus Diabetes mellitus complication detail: with foot ulcer Diabetes mellitus complication status: with skin complications Diabetes mellitus fpc insulin use: unspecified buttermilk drier operator insulin use status Diabetes mellitus type: type 2 Qualified Code(s): E11.621 - Type 2 diabetes mellitus with foot ulcer; L97.509 - Non-pressure chronic ulcer of other part of unspecified foot with unspecified severity
[2023-08-12] MEDS: ENOXAPARIN INJ 40 MG/0.4 ML SYR SQ SCH (06:25)
[2023-08-12] MEDS: AMMONIUM LACTATE 12% LOTION 225 GM BTL EXT SCH (07:40)
[2023-08-12] MEDS: ESCITALOPRAM OXALATE 10 MG TAB PO SCH (07:40)
[2023-08-12] MEDS: MULTIVITAMIN TAB PO SCH (07:40)
[2023-08-12] MEDS: metFORMIN HCL 500 MG TAB PO SCH (07:40)
[2023-08-12] MEDS: AMOXICILLIN/CLAVULANATE 875 MG TAB PO SCH (07:40)
[2023-08-12] MEDS: INSULIN ASPART PER UNIT CHARGE SC SCH ×2 (08:35→12:08)
--- NOTE | 2023-08-12 19:01 | Discharge Summary ---
Date of Service August 12, 2023 Admission HPI Per Admitting Provider 63 yo male with PMHx depression and uncontrolled DM2 presents with foot pain. He is homeless. A few days ago patient started experiencing pain beneath his left big toe as well as medial ankle which has been progressively getting worse to the point where he can no longer ambulate on it. He denies headache, fever, chest pain, shortness of breath, abdominal pain, nausea, vomiting, diarrhea, constipation, fatigue, new extremity weakness/numbness/tingling. He was seen here 1 month ago for similar symptoms and was discharged on antibiotics which she was to black pickler at the pharmacy however he states he never did due to inaccessibility and financial reasons. He also states he has not been taking any other medication over the past month due to the same reason. Principal Diagnosis left lower extremity cellulitis Discharge Exam PHYSICAL EXAMINATION Last 24h vital signs reviewed, see documentation in flowsheet Exam unchanged 08/12 General: comfortable appearing, no distress HEENT: Normocephalic, atraumatic, pupils round and equal, sclerae anicteric, no conjunctival injection, moist mucus membranes Lungs: Normal respiratory effort. Heart: deferred Abdomen: Soft, nondistended. Extremities: lower extremities notable for woody edema up to proximal dumont. Severe stasis dermatitis and hyperkeratosis bilateral feet and shins looks improved with lachydrin. Bilateral erythema of mid shins is improved, cellulitis resolved. Left first toe erythema and induration resolved, warty appearance unchanged, no drainage on dressing Neuro: Alert and oriented x 4, face symmetric, moves 4 extremities well Psych: Normal affect and behavior Discharge Data Allergies Allergy/AdvReac Type Severity Reaction Status Date / Time No Known Allergies Allergy Verified 08/05/23 23:55 Consultations 08/06/23 02:32 ED Decision to Admit Stat Ordered Studies Foot X-Ray 08/06/23 00:06 XR foot LT min 3V routine, XR foot RT min 3V routine CLINICAL HISTORY: eval osteomyelitis TECHNIQUE: 3 views of the bilateral feet were obtained. Comparison: None available at the time of this dictation. FINDINGS: No evidence of bony erosion is seen. Atrophy of the fifth digit of the right foot is noted. Soft tissue swelling is seen about the foot. IMPRESSION: 1. No radiographic evidence of osteomyelitis. If clinical concern remains, MRI is a more sensitive modality. 2. Atrophy of the right fifth digit is noted with termination at a diminutive proximal phalanx, this appears chronic. ACT 112: Negative or not required by law. Electronically signed by: Hector Wills M.D. 08/06/2023 7:33 AM Foot X-Ray 08/06/23 00:06 XR foot LT min 3V routine, XR foot RT min 3V routine CLINICAL HISTORY: eval osteomyelitis TECHNIQUE: 3 views of the bilateral feet were obtained. Comparison: None available at the time of this dictation. FINDINGS: No evidence of bony erosion is seen. Atrophy of the fifth digit of the right foot is noted. Soft tissue swelling is seen about the foot. IMPRESSION: 1. No radiographic evidence of osteomyelitis. If clinical concern remains, MRI is a more sensitive modality. 2. Atrophy of the right fifth digit is noted with termination at a diminutive proximal phalanx, this appears chronic. ACT 112: Negative or not required by law. Electronically signed by: Hector Wills M.D. 08/06/2023 7:33 AM Diabetes Follow up Will establish new PCP in [place] Hospital Course (1) Cellulitis of left foot: 63 yo male with PMHx depression and uncontrolled DM2 presents with foot pain. He is homeless.Has not taken any medications in the past month. L great toe with warty texture, maceration and erythema without sasha ulceration or wound. Bilateral L>R ankle erythema and induration. [place] wrinkly edema and severe venous stasis dermatitis bilaterally. 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 cellulitis but without ulceration. unlikely osteomyelitis. no deep wound is present and x-rays were negative. No leukocytosis. Vitals wnl, afebrile. Seen here last month for similar complaint. Was discharged on oral abx however patient unable to obtain them due to being homeless. -given vancomycin and zosyn in the ED. Improved as of 08/07 changed antibiotics to oral Augmentin - completed 7d course with resolution while still in hospital -blood cx finalized negative -he will elevate legs when at rest -wound care consulted - rec'd lachydrin which improved his stasis dermatitis -ultimately needs diabetic shoes as he has severe neuropathy of both feet He has been having skin problems severely exacerbated by homelessness with readmissions. Fortunately a friend in [place], [place] is willing to let him move in with her. We were able to assist him with transportation today. -will need to establish with ingot car operator in [place] area as well as re-establish with his previous PCP (2) Plantar verrucous carcinoma of left foot: podiatry follow up (3) Homelessness: significant barrier to medical care and follow-up now has been enrolled in insurance confirms can move in with friend in [place] - went there today meds and diabetic supplies sent to [facility] in [place] (4) Diabetes mellitus: uncontrolled, A1c 10 last month, BG at goal on metformin and diet while in hospital with rare doses of PRN insulin -resumed po metformin, establish PCP, diabetic supplies filled Plan #Severe chronic constipation - resumed bowel regimen #Iron deficiency - EGD fairly unremarkable last admission 07/22 mild gastritis and small hiatal hernia. Colonoscopy attempted but too much stool to visualize, repeat cancelled by GI and planned to do as outpatient -given venofer x 2 doses last admission -please make local outpatient GI referral after presenting for primary care #Depression - resumed escitalopram Total Time Total Time Spent Total Time Spent (In Minutes): 35 minutes Discharge Plan Discharge Items Patient Disposition: Home - Self-Care Reason For Visit: FOOT INFECTION Discharge Diagnosis: skin infection of left great toe and left dumont Condition on Discharge: Good Activity: Resume your previous activity Activity Comment: try to keep your legs elevated when you can Non-emergency contact: Primary Care Provider Call non-emergency contact if: you have any medication questions and your symptoms worsen Follow-up/Referrals: PCP,NO [Primary Care Provider] - (PATIENT IS CURRENTLY STAYING WITH HIS SISTER IN [place], [place]. HOWEVER; HE IS RELOCATING TO [place]. HE WILL CONTACT HIS OLD PCP TO MAKE A HOSPITAL FOLLOW UP VISIT.) Diet: Carb Consistent or DM2 Addtl Attending Provider Instructions: Make an appointment with a new primary care doctor and a ingot car operator as soon as possible in [place] area Your primary care doctor may be able to help with finding a local ingot car operator You finished a course of antibiotics while you were in the hospital, you don't need more antibiotics after this morning Put lac-hydrin or another heavy emollient lotion on your feet and lower legs every day Keep your feet elevated when you're resting in a chair Change the dressing on your left toe daily or as needed - you can use dry gauze and paper tape - you can buy more dressing supplies at [facility] Pending Studies at Discharge: No Stand-Alone Forms: My [facility], Smoking Cessation Medications and DC Order Prescriptions: New metformin 750 mg tablet extended release 24 hr 1,500 mg PO DAILY Qty: 60 0RF escitalopram oxalate 10 mg Tablet 10 mg PO DAILY Qty: 30 0RF sennosides [Senokot] 8.6 mg Tablet 8.6 - 17.2 mg PO BID PRN (Reason: constipation) Qty: 60 0RF Lac-Hydrin Five 5 % Lotion 1 applic EXT DAILY Qty: 226 0RF Rx Instructions: apply small amount to both feet and legs multivitamin with folic acid [Daily-Jaya (with folic acid)] 400 mcg Tablet 1 tab PO QAM Qty: 30 0RF Continued (DME) blood sugar diagnostic Strip See Rx Instructions .Route Qty: 100 0RF Rx Instructions: check once daily in the morning (DME) lancets [Onetouch Delica Safety Lancet] 30 gauge misc See Rx Instructions .Route Qty: 100 0RF Rx Instructions: check once daily (DME) blood-glucose meter Misc See Rx Instructions .Route Qty: 1 0RF Rx Instructions: check blood sugar once a day in the morning. Discontinued sennosides [Senokot] 8.6 mg tablet 17.2 mg PO BID PRN (Reason: Constipation) polyethylene glycol 3350 [Miralax] 17 gram powder in packet 17 g PO DAILY PRN (Reason: Constipation) metformin 750 mg tablet extended release 24 hr 750 mg PO QAM escitalopram oxalate 10 mg tablet 10 mg PO DAILY Qty: 30 0RF amoxicillin-pot clavulanate 875-125 mg Tablet 1 tab PO BIDM Qty: 2 0RF doxycycline hyclate 100 mg Capsule 100 mg PO BID Qty: 2 0RF Discharge Orders: Discharge Order (Routine); Ordered 08/12/23 Ordered By: Rosmery Agustin/Other Patient Handouts: Diabetes Foot Infections Tx, Diabetes: Inspecting Your Feet, ED Diabetic Foot Care Admission Data Admit Date/Time: 08/07/23 16:32 Attending Provider: Rosmery Del Rio Admit Provider: Rosmery Del Rio Primary Care Provider: PCP,NO Other Providers: Alhaji Benjamin Other Interventions: Discharge Summary Assessment (RN) Last Done: 08/12/23 12:58 Coding Level of Care Code 22835 INP/OBS DISCH >30 MIN Diagnoses Cellulitis of left foot L03.116 Plantar verrucous carcinoma of left foot C76.52 Homelessness Z59.00 Diabetes mellitus E11.621; L97.509 Diabetes mellitus complication detail: with foot ulcer Diabetes mellitus complication status: with skin complications Diabetes mellitus assisted insulin use: unspecified assisted insulin use status Diabetes mellitus type: type 2
== END 2023-08-12 13:45 | disposition home or self-care (01) | DRG 603 ==
LOC: ED 21:28 → EDINP 21:28 → SUATTDRO 08-06 03:18 → 3N 08-06 14:04